=== PATIENT | male | born 1985 | race Hispanic/Latino ===

== ENCOUNTER 2016-10-04 01:11 | Emergency (ER) | payer OTHER ==
[2016-10-04 02:26] LABS: Basophils % (Auto) 0.1 % (0.0-1.8); Eosinophils % (Auto) 1.8 % (0.0-4.3); Hematocrit 42.1 % (35.5-45.6); Hemoglobin 14.1 gm/dl (11.8-15.2); Mean Corpuscular HGB Conc 34 % (32-34); Mean Corpuscular Hemoglobin 30 pg (28-32); Mean Corpuscular Volume 88 fl (84-94); Platelet Count 205 K/mm3 (140-440); Red Blood Count 4.77 M/mm3 (3.65-5.03); Red Cell Distribution Width 13.8 % (13.2-15.2); White Blood Count 10.9 K/mm3 (4.5-11.0)
[2016-10-04 02:32] LABS: Bilirubin,Urine NEG (Negative); Blood,Urine NEG (Negative); Ketones,Urine 20 mg/dL (Negative); Leukocyte Esterase,Urine NEG (Negative); Mucus,Urine FEW /HPF; Nitrite,Urine NEG (Negative)
[2016-10-04 02:33] LABS: Anion Gap 18 mmol/L; BUN/Creatinine Ratio 13.75; Blood Urea Nitrogen 11 mg/dL (9-20); Calcium 9.2 mg/dL (8.4-10.2); Carbon Dioxide 24 mmol/L (22-30); Chloride 100.4 mmol/L (98-107); Glucose 125 mg/dL (75-100); Potassium 3.1 mmol/L (3.6-5.0); Sodium 139 mmol/L (137-145)
[2016-10-04 02:43] LABS: Urine Drugs of Abuse Note Disclamer
--- NOTE | 2016-10-04 02:54 | XRay Report ---
FINAL REPORT PROCEDURE: XR CHEST 1V AP TECHNIQUE: Chest radiograph anteroposterior view. CPT 91793 HISTORY: seizure ? pna COMPARISON: No prior studies are available for comparison. FINDINGS: Heart: Normal. Mediastinum/Vessels: Normal. Lungs/Pleural space: Normal. Bony thorax: No acute osseous abnormality. Life support devices: None. IMPRESSION: No acute cardiopulmonary abnormality.
[2016-10-04] MEDS ORDERED: VITAMIN B-1 100 MG, FOLVITE 1 MG, INFUVITE 10 ML in NACL 0.9% 1000 ML 1,000 ML IV ONE (02:55)
[2016-10-04] MEDS ORDERED: K-DUR PO ONE (02:55)
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
[2016-10-04] MEDS: KCL 10MEQ/100ML 10 MEQ/100 ML BAG IV SCH ×3 (03:30→06:03)
--- NOTE | 2016-10-04 03:37 | Cat Scan Report ---
FINAL REPORT PROCEDURE: CT HEAD/BRAIN WO CON TECHNIQUE: Computerized tomography of the head was performed without contrast material. HISTORY: hematoma, poss seizure w/o hx COMPARISON: No prior studies are available for comparison. FINDINGS: Skull and scalp: Normal. Paranasal sinuses: Normal. Ventricles and subarachnoid spaces: Normal. Cerebrum: No evidence of hemorrhage, acute infarction or mass . Cerebellum and brainstem: No evidence of hemorrhage, acute infarction or mass. Vasculature: Normal. Comments: None. IMPRESSION: Normal Examination
--- NOTE | 2016-10-04 03:39 | Cat Scan Report ---
FINAL REPORT PROCEDURE: CT CERVICAL SPINE WO CON TECHNIQUE: Computerized tomography of the cervical spine was performed from the skull base to T1 without contrast material. HISTORY: seizure ams COMPARISON: No prior studies are available for comparison. FINDINGS: The alignment of the cervical vertebral segments is normal. The heights of the vertebral bodies and the disc spaces are maintained. No acute fracture or dislocation is seen. The spinal canal is adequate at all levels. The visualized portion of the airway is patent. IMPRESSION: There is no evidence of acute fracture or dislocation of the cervical spine..
--- NOTE | 2016-10-04 05:52 | Cat Scan Report ---
FINAL REPORT PROCEDURE: CT THORACIC SPINE WO CON TECHNIQUE: Computerized axial tomography of the thoracic spine was performed from C7 - L1 without contrast material. HISTORY: back pain COMPARISON: No prior studies are available for comparison. FINDINGS: There is a mild right convex curvature in the mid thoracic spine. The heights of the vertebral bodies and the disc spaces are maintained. No acute fracture or dislocation. IMPRESSION: No acute fracture. Mild right convex curvature.
--- NOTE | 2016-10-04 05:54 | Cat Scan Report ---
FINAL REPORT PROCEDURE: CT LUMBAR SPINE WO CON TECHNIQUE: Computerized axial tomography of the lumbar spine was performed from T12 to the sacrum without contrast material. HISTORY: back pain COMPARISON: No prior studies are available for comparison. FINDINGS: L1-2: No significant abnormality. L2-3: No significant abnormality. L3-4: No significant abnormality. L4-5: No significant abnormality. L5-S1: No significant abnormality. Other: The alignment is normal. The heights of the vertebral bodies and the disc spaces are maintained. No acute fracture or dislocation of the lumbar spine. The spinal canal is adequate at all levels.. IMPRESSION: No significant abnormality
[2016-10-04 09:59] VITALS: BP 102/57
== END 2016-10-04 10:11 ==
LOC: ED 01:11
DX: F19.10 Other psychoactive substance abuse, uncomplicated (principal); Z02.89 Encounter for other administrative examinations; F31.9 Bipolar disorder, unspecified; F20.9 Schizophrenia, unspecified; F17.200 Nicotine dependence, unspecified, uncomplicated; F12.90 Cannabis use, unspecified, uncomplicated; Z88.8 Allergy status to other drugs, medicaments and biological substances
CPT/HCPCS: 36415; 51701; 70450; 71010; 72125; 72128; 72131; 80048; 80307; 81001; 82550; 82962; 83735; 85025; 96365; 96366; 96368; 99285; G0480; J3411; J3480; J7030; 80320

== ENCOUNTER 2019-09-14 14:20 | Emergency (ER) | payer SELFPAY ==
[2019-09-14] MEDS ORDERED: FAMOTIDINE 20 MG/2 ML INJ IV ONE (14:33)
[2019-09-14] MEDS ORDERED: diphenhydrAMINE 50 MG/ML VIAL IV ONE (14:33)
[2019-09-14] MEDS ORDERED: methylPREDNISolone Sod Succinate 125 MG/2 ML INJ IV ONE (14:33)
[2019-09-14 14:52] VITALS: BP 105/58
--- NOTE | 2019-09-14 16:34 | Emergency Department Report ---
ED Rash HPI - HPI Chief Complaint: Allergic Reaction Stated Complaint: ALLERGIC REACTION Time Seen by Provider: 09/14/19 14:32 Duration: 2 Days Location: Head, Other (Face) Rash Symptoms: Yes Itching, Yes Facial Swelling, Yes Tongue/Oral Swelling, No Breathing Difficulties, No Choking Sensation, No Wheezing/Dyspnea, No Peeling, No Blistering, No Fever, No Lightheaded, No Malaise, No Myalgias Severity: mild, moderate Other History: 34-year-old male presents to the ER today complaint of rash to his face and head. Patient states that 2 days ago he started with a mild erythematous rash to his left frontal scalp/left forehead. He states since then it has spread to involve his face. He reports associated swelling, and then today it felt like his throat was tight and so came to the ER to get it checked out. Patient describes that the rash as a burning itchy rash. He does not recall any new contacts, such as new facial wash, shampoos, soaps, medications or any other new contacts. He had not taken anything at home for the rash or swelling. Patient reports that his throat feels better, as well as the tightness that he has in his face and scalp feels better after receiving IV Solu-Medrol, Pepcid and Benadryl here in the ER. He denies any shortness of breath, chest pain, cough, wheezing or any other area with rash ED Review of Systems ROS: Stated complaint: ALLERGIC REACTION Other details as noted in HPI Comment: All other systems reviewed and negative Constitutional: denies: chills, fever Eyes: denies: eye pain, eye discharge, vision change Respiratory: denies: cough, orthopnea, shortness of breath, SOB with exertion, SOB at rest, wheezing Cardiovascular: denies: chest pain, palpitations Gastrointestinal: denies: abdominal pain, nausea, diarrhea Skin: rash Neurological: denies: headache, weakness, paresthesias Psychiatric: denies: anxiety, depression Hematological/Lymphatic: denies: easy bleeding, easy bruising ED Past Medical Hx - Past Medical History Previous Medical History?: Yes Hx Psychiatric Treatment: Yes (Schizophrenia, Bipolar, DID) Additional medical history: Hypoglycemia - Surgical History Past Surgical History?: Yes Hx Cholecystectomy: Yes Additional Surgical History: bilateral knee surgery - Social History Smoking Status: Current Some Day Smoker Substance Use Type: None - Medications Home Medications: Home Medications Medication Instructions Recorded Confirmed Last Taken Type chlordiazePOXIDE [Librium] 25 mg PO Q6H PRN #15 capsule 10/04/16 Unknown Rx Famotidine [Pepcid] 20 mg PO BID #10 tablet 09/14/19 Unknown Rx diphenhydrAMINE [Benadryl CAP] 25 mg PO Q6HR PRN #30 capsule 09/14/19 Unknown Rx predniSONE [Deltasone] 60 mg PO QDAY #15 tab 09/14/19 Unknown Rx Rash Exam - Exam General: Vital signs noted. No distress. Alert and acting appropriately. HEENT: No Conjuctival Injection, No Chemosis, No Perioral Edema, No Tongue Edema, No Uvular Edema, No Compromised Airway, No Drooling Lungs: Yes Good Air Exchange, No Wheezes, No Ronchi, No Stridor, No Cough, No Labored Respirations, No Retractions, No Use of Accessory Muscles, No Other Abnormal Lung Sounds Heart: No Regular, No Murmur Skin: Yes Urticarial Rash (Patient has a moderate erythematous maculopapular urticarial rash noted to his left frontal scalp, his forehead, and his face. There is mild swelling diffusely to the face, but no apparent lip swelling, tongue swelling or throat swelling. The rash also extends to the left external ear and behind the ear. There is no tenderness to palpation.), Yes Maculopapular Rash Other: Positive: Neurologic Normal ED Course Vital Signs 09/14/19 09/14/19 14:27 14:40 Temperature 97.8 F Pulse Rate 95 H Respiratory 20 17 Rate Blood Pressure 105/58 O2 Sat by Pulse 98 Oximetry ED Medical Decision Making - Medical Decision Making 1638 --patient presents to the ER today complaining of a pruritic/burning rash to his face, and frontal scalp. Onset was about 2 days ago. He does not recall any new contacts. He reported having tightness in his throat today. Patient was given IV Solu-Medrol, Pepcid and Benadryl here in the ER. Patient reports that since receiving the medication his throat feels better, and he feels like the swelling and tightness to his face from the rash has improved. Patient currently is resting comfortably. He does not appear to be in any acute respiratory distress. He has no tongue or throat swelling. He is airways intact. Chest clear to auscultation. Patient is well-appearing and nontoxic. His vital signs are stable. Patient will be treated for a possible contact dermatitis/allergic reaction with more steroids, Benadryl and Pepcid to go home with. Discussed suspected diagnosis and treatment plan with patient. Patient stable for discharge. Critical care attestation.: If time is entered above; I have spent that time in minutes in the direct care of this critically ill patient, excluding procedure time. ED Disposition Clinical Impression: Contact dermatitis Disposition: DC-01 TO HOME OR SELFCARE Is pt being admited?: No Does the pt Need Aspirin: No Condition: Stable Instructions: Contact Dermatitis (ED) Additional Instructions: I recommend that you take the medications as prescribed. You can apply cool compresses over the rash which can help with itching. I recommend close follow- up with primary care doctor but if worse return to the ER. Prescriptions: diphenhydrAMINE [Benadryl CAP] 25 mg PO Q6HR PRN #30 capsule PRN Reason: Swelling/itching predniSONE [Deltasone] 60 mg PO QDAY #15 tab Famotidine [Pepcid] 20 mg PO BID #10 tablet Referrals: THAI WILCOX MD [Staff Physician] - 3-5 Days Forms: Work/School Release Form(ED) Time of Disposition: 16:37
== END 2019-09-14 18:10 | disposition home or self-care (01) ==
LOC: ED 14:20
DX: L25.9 Unspecified contact dermatitis, unspecified cause (principal); F17.200 Nicotine dependence, unspecified, uncomplicated; F25.0 Schizoaffective disorder, bipolar type; Z88.8 Allergy status to other drugs, medicaments and biological substances; Z79.899 Other long term (current) drug therapy; Z90.49 Acquired absence of other specified parts of digestive tract; Z98.890 Other specified postprocedural states
CPT/HCPCS: 96374; 96375; 99282; J1200; J2930

== ENCOUNTER 2020-11-06 01:54 | Emergency (ER) | payer SELFPAY | END 2020-11-06 02:24 | disposition left against medical advice (07) | LOC: ED 01:54 | DX: R07.89 Other chest pain (principal); Z53.21 Procedure and treatment not carried out due to patient leaving prior to being seen by health care provider ==

== ENCOUNTER 2021-07-16 19:37 | Emergency (ER) | payer SELFPAY ==
[2021-07-16] MEDS ORDERED: METOCLOPRAMIDE 10 MG TAB PO ONE (19:42)
[2021-07-16] MEDS ORDERED: ACETAMINOPHEN 325 MG TAB PO ONE (19:42)
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
== END 2021-07-17 00:45 | disposition left against medical advice (07) ==
LOC: ED 19:37
DX: M79.605 Pain in left leg (principal); R51.9 Headache, unspecified; Z53.21 Procedure and treatment not carried out due to patient leaving prior to being seen by health care provider; V89.2XXA Person injured in unspecified motor-vehicle accident, traffic, initial encounter; Y93.89 Activity, other specified; Y92.89 Other specified places as the place of occurrence of the external cause; Y99.8 Other external cause status